=== PATIENT | male | born 1945 | race Caucasian/White ===

== ENCOUNTER 2016-09-28 08:15 | Day surgery (SDC) | payer MEDICARE, BC ==
[~2016-09-28] VITALS: Ht 180.3 cm; Wt 79.0 kg
--- NOTE | ~2016-09-28 | PN ---
PATIENT:TRINI VARGAS MEDICAL RECORD: [id number] LOCATION:[facility] ADMISSION DATE: 09/28/16 PROGRESS NOTE DATE OF SERVICE: 09/28/2016 As I was finishing up one my operative case, I was told that Mr. Chan operative procedure had been canceled by the anesthesia staff. Yesterday, during the Mr. Vargas' preadmission process, he stated that it was going to be inconvenient for him to arrive early and he was scheduled as the second case. We arranged it so that his operative procedure could be later in the day. Once he got here and was going through the admission process in the outpatient department, the patient became agitated, angry, volatile, was cursing and was threatening toward the outpatient staff. The anesthesia staff came over and tried to calm him down and he continued to be disruptive. As he is a danger to the hospital employees, I agree that his case should be canceled and we will go about dismissing him from our clinic. 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
[~2016-09-28 08:15] MED LIST: BREO ELLIPTA 11 EACH INH; CARTIA XT240 MG PO; CILOSTAZOL50 MG; CRESTOR20 MG PO; PROAIR HFA8.5 GM INH; PROTONIX40 MG PO; SINGULAIR10 MG PO; SYMBICORT 16010.2 GM INH; TRICOR145 MG PO; ZOLOFT100 MG PO
[2016-09-28 09:09] LABS: HEMATOCRIT 44.4 % (42.0-54.0); HEMOGLOBIN 14.9 g/dL (13.5-17.5); MCH 29.2 pg (26.0-34.0); MCHC 33.6 g/dL (31.0-37.0); MCV 86.9 fL (80.0-100.0); RBC 5.11 10x6/uL (4.20-6.10); RDW 13.8 % (11.5-14.5); WBC 9.5 10x3/uL (4.8-10.8)
[2016-09-28 09:40] VITALS: BP 151/73; Ht 180.3 cm; Wt 79.0 kg
--- NOTE | 2016-09-28 13:13 | NUR ---
1300-DR DEVLIN HERE TO SPEAK WITH PATIENT. 1305-CASE CANCELLED 1310-IV D/C- CALLED. 1315-PATIENT LEFT.
== END 2016-09-28 13:15 | disposition home or self-care (01) ==
LOC: D.OPS 08:15 → D.PAN 09:00 → D.OPS 09:00
PROVIDERS: Anesthesiology
DX: K63.5 Polyp of colon (principal); Z01.812 Encounter for preprocedural laboratory examination; Z01.811 Encounter for preprocedural respiratory examination; Z01.810 Encounter for preprocedural cardiovascular examination; Z53.9 Procedure and treatment not carried out, unspecified reason